=== PATIENT | male | born 1945 | race Caucasian/White ===

== ENCOUNTER 2017-11-26 17:23 | Emergency (ER) | payer OTHER, SELFPAY ==
[2017-11-26] MEDS ORDERED: Acetaminophen 500 MG TAB ONE (17:53)
[2017-11-26 18:18] LABS: #Basophils 0.1 thou/uL (0.0-0.2); #Lymphocytes 0.4 thou/uL (1.20-3.40); #Monocytes 0.5 thou/uL (0.11-0.59); %Basophils 0.5 % (0.0-1.0); %Eosinophils 0.1 % (0.0-10.0); %Lymphocytes 3.6 % (21.0-51.0); %Monocytes 4.5 % (0.0-10.0); %Neutrophils 91.2 % (42.0-75.0); Hemoglobin 13.5 g/dL (14.0-18.0); Mean Corpuscular HGB CONC 37.3 g/dL (32.0-36.0); Mean Corpuscular Hemoglobin 34.2 pg (27.0-31.0); Mean Corpuscular Volume 91.8 fl (80.0-94.0); Mean Platelet Volume 8.3 fL (7.4-10.4); Platelet Count 134 thou/uL (130-400); RBC Distribution Width 10.8 % (11.5-14.5); Red Blood Cell (RBC) Count 3.95 mill/uL (4.70-6.10)
[2017-11-26 18:21] LABS: Anion Gap 15 mmol/L (10-20); BUN (Urea Nitrogen) 20 mg/dL (8.4-25.7); Calc. Creatinine Clearance 0 mL/min (70-130); Calcium 9.7 mg/dL (7.8-10.44); Carbon Dioxide 26 mmol/L (23-31); Chloride 104 mmol/L (98-107); Estimated GFR-MDRD 59; Glucose 124 mg/dL (83-110); Potassium 3.8 mmol/L (3.5-5.1); Sodium 141 mmol/L (136-145)
[2017-11-26 18:22] LABS: MDiff Complete? YES; PLT Morphology Comment Appears Adequate; Stomatocytes SLIGHT = 2-5 cells (100X) (0-1/hpf)
--- NOTE | 2017-11-26 18:45 | RAD ---
PORTABLE CHEST: INDICATIONS: Weakness. COMPARISON: None. FINDINGS: Mild elevation of the right hemidiaphragm. The lung cano appear clear with no evidence of infiltra te or vascular congestion. Gas-filled bowel loops seen under the right hemidiaphragm. IMPRESSION: Elevated right hemidiaphragm. No acute lung process identified. POS: [facility]
--- NOTE | 2017-11-26 18:54 | ULT ---
RIGHT LOWER EXTREMITY VENOUS DUPLEX EXAM: INDICATIONS: Right lower extremity redness and pain. TECHNIQUE: The deep veins of the right lower extremity are evaluated with color Doppler, spectral analysis, and compression. FINDINGS: The deep veins of the right lower extremity show normal compression and blood flow. No evidence of D VT. IMPRESSION: No evidence of right lower extremity deep venous thrombosis. POS: [facility]
[2017-11-26] MEDS ORDERED: Sodium Chloride 0.9% 0 ML ONE (19:04)
[2017-11-26] MEDS ORDERED: cefTRIAXone\\ROCEPHIN 1 GM VIAL ONE (19:04)
[2017-11-26] MEDS ORDERED: Sodium Chloride 0.9% 100 ML ONE (19:05)
== END 2017-11-26 19:58 | disposition home or self-care (01) ==
LOC: SCSER 17:23
DX: L03.115 Cellulitis of right lower limb (principal); Z86.73 Personal history of transient ischemic attack (TIA), and cerebral infarction without residual deficits; Z79.899 Other long term (current) drug therapy
CPT/HCPCS: 36415; 71045; 80048; 83605; 85025; 87040; 93005; 96365; J0696; J7050